=== PATIENT | female | born 1945 | race Caucasian/White ===

== ENCOUNTER 2021-04-16 20:00 | Emergency (ER) | payer MEDICARE, OTHER ==
[~2021-04-16] VITALS: Ht 162.6 cm; Wt 70.0 kg
[~2021-04-16 20:00] MED LIST: CHOL100046 PO; DULO20CA18 PO; LEVO750T46 PO; METO50TA7 PO; MULT-342 PO; OMEP40CA21 PO; OSC500T PO
[2021-04-16] MEDS ORDERED: cloNIDine 0.1 mg tablet PO STA (21:23)
[2021-04-16] MEDS ORDERED: CLON0.2T PO (21:27)
[2021-04-16 22:18] VITALS: BP 201/114
== END 2021-04-16 22:20 | disposition home or self-care (01) ==
LOC: ER 20:01
DX: I10 Essential (primary) hypertension (principal); I25.10 Atherosclerotic heart disease of native coronary artery without angina pectoris; E78.00 Pure hypercholesterolemia, unspecified; K21.9 Gastro-esophageal reflux disease without esophagitis; F41.9 Anxiety disorder, unspecified; Z98.890 Other specified postprocedural states; Z88.2 Allergy status to sulfonamides; Z88.5 Allergy status to narcotic agent; Z88.8 Allergy status to other drugs, medicaments and biological substances; Z79.2 Long term (current) use of antibiotics; Z79.899 Other long term (current) drug therapy; Z91.018 Allergy to other foods
CPT/HCPCS: 93005; 99283